=== PATIENT | male | born 1945 | race Caucasian/White ===

== ENCOUNTER → 2020-09-28 | Outpatient (CLI) | payer MEDICARE, BC ==
[2020-09-27 15:07] VITALS: BP 132/78
[~2020-09-28] MED LIST: ACETAMINOPHEN-H1 TA2 PO; ARMODAFINIL200 MG PO; BROVANA15 MCG/2 M IH; CALCIUM + D3 E1 EACH PO; COD LIVER OIL PO; COREG12.5 M1 PO; COZAAR 50MG50 MG/TAB PO; DESIPRAMINE50 MG PO; DOXAZOSIN MESYLA8 M1 PO; ELIQUIS2.5 MG PO; FLUTICASON0.05 MG/Ac NS; INSULIN HUMA100 U/ML SQ; IPRATROPIUM BROM3 M1 IH; LASIX20 M1 PO; LIPITOR 40MG TA40 MG PO; LOSARTAN POTASS1 TA4 PO; MIRALAX17 GM PO; MULTI-VITAMIN1 EACH PO; NITROSTAT0.4 M1 SL; NORVASC 10MG10 MG PO; PULMICORT0.25 MG/2 INH; PULMICORT0.5 MG/2 M IH; TEFLARO 60600 MG/VIA IV; VITAMIN C PUR1000 MG PO; VITAMIN D3100 MCG PO; ZYRTEC10 M3 PO
[2020-09-28 15:55] LABS: BASO # 0.1 (0.02-0.10); EOS # 0.5 (0.04-0.40); HEMATOCRIT 42.1 % (42.0-52.0); HEMOGLOBIN 13.4 g/dL (13.5-18.0); LYMPH# 1.3 (1.50-4.00); MEAN CELL VOLUME 90 fl (78-100); MEAN CORPUSCULAR HEMOGLOBIN 29 pg (27-31); MEAN CORPUSCULAR HGB CONC 32 g/dL (33-37); MEAN PLATELET VOLUME 9.3 fl (7.4-10.4); MONO # 0.9 (0.20-0.80); NEU # 5.5 (1.40-6.50); PLATELET COUNT 284 K/mm3 (130-400); RED BLOOD COUNT 4.69 M/mm3 (4.20-5.60); RED CELL DISTRIBUTION WIDTH 13.4 % (11.5-14.5); WHITE BLOOD COUNT 8.2 K/mm3 (4.8-10.8)
[2020-09-28 16:02] LABS: EOS % 5.5 % (0.0-4.0)
[2020-09-28 17:07] LABS: ERYTHROCYTE SEDIMENTATION RATE 54 mm/hr (0-20)
== END ==
LOC: LAB 15:18
PROVIDERS: Nurse Practitioner
DX: M65.849 Other synovitis and tenosynovitis, unspecified hand (principal); B95.62 Methicillin resistant Staphylococcus aureus infection as the cause of diseases classified elsewhere

== ENCOUNTER → 2020-10-05 | Outpatient (CLI) | payer MEDICARE, BC ==
[2020-10-04 15:23] VITALS: BP 150/93
[2020-10-05 15:25] LABS: BASO # 0.1 (0.02-0.10); EOS # 0.6 (0.04-0.40); HEMATOCRIT 43.2 % (42.0-52.0); HEMOGLOBIN 13.6 g/dL (13.5-18.0); LYMPH# 1.4 (1.50-4.00); MEAN CELL VOLUME 90 fl (78-100); MEAN CORPUSCULAR HEMOGLOBIN 28 pg (27-31); MEAN CORPUSCULAR HGB CONC 32 g/dL (33-37); MEAN PLATELET VOLUME 9.4 fl (7.4-10.4); MONO # 0.8 (0.20-0.80); NEU # 5.2 (1.40-6.50); PLATELET COUNT 309 K/mm3 (130-400); RED BLOOD COUNT 4.81 M/mm3 (4.20-5.60); RED CELL DISTRIBUTION WIDTH 13.5 % (11.5-14.5); WHITE BLOOD COUNT 8.1 K/mm3 (4.8-10.8)
[2020-10-05 17:21] LABS: ERYTHROCYTE SEDIMENTATION RATE 53 mm/hr (0-20)
== END ==
LOC: LAB 14:54
DX: M65.849 Other synovitis and tenosynovitis, unspecified hand (principal); B95.62 Methicillin resistant Staphylococcus aureus infection as the cause of diseases classified elsewhere; Z79.899 Other long term (current) drug therapy

== ENCOUNTER → 2020-10-12 | Outpatient (CLI) | payer MEDICARE, BC ==
[2020-10-11 15:35] VITALS: BP 123/79
[2020-10-12 15:53] LABS: HEMATOCRIT 44.2 % (42.0-52.0); HEMOGLOBIN 13.8 g/dL (13.5-18.0); MEAN CELL VOLUME 90 fl (78-100); MEAN CORPUSCULAR HEMOGLOBIN 28 pg (27-31); MEAN CORPUSCULAR HGB CONC 31 g/dL (33-37); MEAN PLATELET VOLUME 9.8 fl (7.4-10.4); PLATELET COUNT 223 K/mm3 (130-400); RED BLOOD COUNT 4.89 M/mm3 (4.20-5.60); WHITE BLOOD COUNT 8.6 K/mm3 (4.8-10.8)
[2020-10-12 16:18] LABS: LYMPHOCYTE 11 % (20-51); MONOCYTE 11 % (3-10); NEUTROPHILS 70 % (42-75)
[2020-10-12 16:59] LABS: ERYTHROCYTE SEDIMENTATION RATE 30 mm/hr (0-20)
== END ==
LOC: LAB 15:28
DX: M65.849 Other synovitis and tenosynovitis, unspecified hand (principal); B95.62 Methicillin resistant Staphylococcus aureus infection as the cause of diseases classified elsewhere

== ENCOUNTER → 2020-10-19 | Outpatient (CLI) | payer MEDICARE, BC ==
[2020-10-18 15:21] VITALS: BP 126/74
[2020-10-19 15:09] LABS: HEMATOCRIT 42.6 % (42.0-52.0); HEMOGLOBIN 13.3 g/dL (13.5-18.0); MEAN CELL VOLUME 91 fl (78-100); MEAN CORPUSCULAR HEMOGLOBIN 29 pg (27-31); MEAN CORPUSCULAR HGB CONC 31 g/dL (33-37); MEAN PLATELET VOLUME 9.9 fl (7.4-10.4); PLATELET COUNT 243 K/mm3 (130-400); RED BLOOD COUNT 4.66 M/mm3 (4.20-5.60); RED CELL DISTRIBUTION WIDTH 13.8 % (11.5-14.5); WHITE BLOOD COUNT 9.7 K/mm3 (4.8-10.8)
[2020-10-19 15:39] LABS: LYMPHOCYTE 11 % (20-51); MONOCYTE 10 % (3-10); NEUTROPHILS 70 % (42-75)
[2020-10-19 16:18] LABS: ERYTHROCYTE SEDIMENTATION RATE 83 mm/hr (0-20)
== END ==
LOC: LAB 14:41
DX: M65.849 Other synovitis and tenosynovitis, unspecified hand (principal); B95.62 Methicillin resistant Staphylococcus aureus infection as the cause of diseases classified elsewhere

== ENCOUNTER 2020-10-20 14:58 | Outpatient (RCR) | payer MEDICARE, BC ==
[2020-09-25 15:08] VITALS: BP 127/81
[2020-09-26 14:56] VITALS: BP 126/66
[2020-09-27 15:07] VITALS: BP 132/78
[2020-09-28 15:32] VITALS: BP 132/62
[2020-09-29 15:16] VITALS: BP 131/80
[2020-09-30 15:40] VITALS: BP 99/65
[2020-10-01 14:59] VITALS: BP 123/74
[2020-10-02 15:23] VITALS: BP 135/87
[2020-10-03 16:18] VITALS: BP 133/78
[2020-10-04 15:23] VITALS: BP 150/93
[2020-10-05 15:10] VITALS: BP 125/84
[2020-10-06 15:23] VITALS: BP 119/72
[2020-10-07 15:17] VITALS: BP 147/73
[2020-10-08 14:48] VITALS: BP 134/82
[2020-10-10 15:10] VITALS: BP 145/86
[2020-10-11 15:35] VITALS: BP 123/79
[2020-10-12 15:39] VITALS: BP 114/75
[2020-10-13 15:13] VITALS: BP 137/88
[2020-10-14 16:26] VITALS: BP 143/78
[2020-10-15 15:21] VITALS: BP 99/66
[2020-10-16 15:06] VITALS: BP 116/74
[2020-10-17 15:20] VITALS: BP 121/73
[2020-10-18 15:21] VITALS: BP 126/74
[2020-10-19 15:03] VITALS: BP 128/62
[2020-10-20 15:15] VITALS: BP 134/86
== END 2020-10-20 16:15 | disposition home or self-care (01) ==
LOC: AMSURD 14:58
DX: M65.849 Other synovitis and tenosynovitis, unspecified hand (principal); B95.62 Methicillin resistant Staphylococcus aureus infection as the cause of diseases classified elsewhere
CPT/HCPCS: J0878

== ENCOUNTER → 2020-11-03 | Outpatient (CLI) | payer MEDICARE, BC ==
[2020-10-20 15:15] VITALS: BP 134/86
[2020-11-03 16:12] LABS: ALBUMIN 3.9 g/dL (3.4-4.8); POTASSIUM 4.2 mmol/L (3.5-5.1)
[2020-11-03 16:13] LABS: CALCIUM 9.2 mg/dL (8.3-10.5)
[2020-11-03 16:16] LABS: TOTAL BILIRUBIN 0.3 mg/dL (0.2-1.2)
== END ==
LOC: LAB 15:49
DX: L03.113 Cellulitis of right upper limb (principal); B95.62 Methicillin resistant Staphylococcus aureus infection as the cause of diseases classified elsewhere; R78.81 Bacteremia